=== PATIENT | female | born 1960 | race Caucasian/White ===

== ENCOUNTER 2016-10-17 17:47 | Emergency (ER) | payer MEDICARE ==
[~2016-10-17] VITALS: Ht 154.9 cm; Wt 75.0 kg
[~2016-10-17 17:47] MED LIST: ASPIRIN 81M81 MG/TA2 PO; ASPIRIN E.C. 8181 MG PO; CALCIUM + D 6001 TAB PO; CHANTIX 0.5MG0.5 MG PO; CHANTIX1 TAB PO; COMPAZINE 110 MG/TAB PO; CYMBALTA 60MG60 MG PO; DESYREL; DIABETA 5MG5 MG/TAB PO; DIUREX WATER PI1 TAB PO; ELAVIL50 MG PO; FLEXERIL 1010 MG/TAB PO; FLEXERIL5 MG PO; FLOVENT DI50 MCG/Act IH; GEODON 40MG40 MG PO; GLUCOPHAGE1000 MG PO; GLUCOPHAGE500 MG/TAB PO; GLYBURIDE1.5 MG PO; HORIZANT600 MG PO; IMODIUM 2MG CAPS2 MG PO; LAMICTAL 100MG100 MG PO; LEXAPRO 10MG10 MG PO; LISINOPRIL10 MG PO; LORTAB 5/500 501 TAB PO; LYRICA200 MG PO; MAXALT10 MG PO; METFORMIN500 MG PO; NAPROSYN500 MG PO; NATURAL E400 IU PO; NIASPAN 500MG500 MG PO; NIASPAN500 MG PO; NIGHT-TIME COL300 ML; NORCO 325 MG-101 TAB PO; PHENTERMINE37.5 M1 PO; PRENATAL1 TA1 PO; PRENATAL1 TA5 PO; PRINIVIL10 MG PO; TOPAMAX100 MG PO; VALIUM5 MG PO; VICODIN PO; VITAMIN B COMPL1 T16 PO; VITAMIN B1225 MCG PO; VITAMIN C500 MG PO; XANAX 0.5MG0.5 MG PO; XANAX0.5 MG PO; ZINC10 M1 PO; ZOCOR 20MG20 MG PO; ZOCOR 40MG40 MG PO; [UNRECOGNIZED DRUG - OTHER] PO
[2016-10-17 18:03] VITALS: BP 129/74; TEMP 98.9
[2016-10-17] MEDS ORDERED: NORCO 325 MG-51 TAB PO (20:31)
[2016-10-17] MEDS ORDERED: LAMICTAL 100MG100 MG PO (20:50)
[2016-10-17] MEDS ORDERED: CYMBALTA 30MG30 MG PO (20:50)
[2016-10-17] MEDS ORDERED: LIORESAL 1010 MG/TAB PO (20:52)
[2016-10-17] MEDS ORDERED: TOPAMAX 100MG100 M1 PO (20:53)
[2016-10-17] MEDS ORDERED: PRAVACHOL 20MG20 MG PO (20:53)
[2016-10-17] MEDS ORDERED: LYRICA200 MG PO (20:55)
[2016-10-17 22:39] VITALS: PULSE 79
== END 2016-10-17 21:21 | disposition home or self-care (01) ==
LOC: COL.ER 17:47
DX: M54.6 Pain in thoracic spine (principal); M54.2 Cervicalgia; M54.5 Low back pain; G89.29 Other chronic pain; E11.9 Type 2 diabetes mellitus without complications; Z79.84 Long term (current) use of oral hypoglycemic drugs; Z85.3 Personal history of malignant neoplasm of breast; E78.00 Pure hypercholesterolemia, unspecified
CPT/HCPCS: J2360

== ENCOUNTER 2016-12-13 13:25 | Outpatient (CLI) | payer MEDICARE, MEDICAID ==
[2016-12-13] VITALS (8 sets, daily range): BP systolic 113–126; BP diastolic 73–84; PULSE 61–70
[~2016-12-13] VITALS: Ht 154.9 cm; Wt 75.0 kg
[~2016-12-13 13:25] MED LIST changes: +CYMBALTA 30MG30 MG PO; +LIORESAL 1010 MG/TAB PO; +NORCO 325 MG-51 TAB PO; +PRAVACHOL 20MG20 MG PO; +TOPAMAX 100MG100 M1 PO
== END 2016-12-13 16:49 | disposition home or self-care (01) ==
LOC: COL.RAD 13:25
DX: M47.814 Spondylosis without myelopathy or radiculopathy, thoracic region (principal); R22.2 Localized swelling, mass and lump, trunk; M47.816 Spondylosis without myelopathy or radiculopathy, lumbar region; M48.07 Spinal stenosis, lumbosacral region; M43.17 Spondylolisthesis, lumbosacral region; M51.26 Other intervertebral disc displacement, lumbar region; M46.87 Other specified inflammatory spondylopathies, lumbosacral region
CPT/HCPCS: Q9965